=== PATIENT | male | born 1965 | race Caucasian/White ===

== ENCOUNTER 2021-11-18 05:02 | Emergency (ER) | payer BC ==
[2021-11-18] MEDS ORDERED: Nitroglycerin 0.4 MG TAB 1 EACH ONE (05:29)
[2021-11-18 05:51] LABS: #Basophils 0.1 thou/uL (0.0-0.2); #Eosinphils 0.2 thou/uL (0.0-0.7); #Lymphocytes 2.9 thou/uL (1.20-3.40); #Monocytes 0.8 thou/uL (0.11-0.59); %Basophils 1.2 % (0.0-1.0); %Eosinophils 3.1 % (0.0-10.0); %Monocytes 10.2 % (0.0-10.0); %Neutrophils 49.5 % (42.0-75.0); Hemoglobin 15.2 g/dL (14.0-18.0); Mean Corpuscular Hemoglobin 29.5 pg (27.0-31.0); Mean Platelet Volume 8.9 fL (7.4-10.4); Platelet Count 337 thou/uL (130-400); RBC Distribution Width 13.2 % (11.5-14.5); Red Blood Cell (RBC) Count 5.16 mill/uL (4.70-6.10)
[2021-11-18 05:53] LABS: INR-International Normal Ratio 0.9; Prothrombin Time 12.5 sec (12.0-14.7)
[2021-11-18 05:54] LABS: PTT 27.6 sec (22.9-36.1)
[2021-11-18 06:02] LABS: ALT (SGPT) 24 U/L (8-55); AST (SGOT) 17 U/L (5-34); Alkaline Phosphatase 63 U/L (40-110); Anion Gap 15 mmol/L (10-20); BUN (Urea Nitrogen) 17 mg/dL (8.4-25.7); Bilirubin, Total 0.3 mg/dL (0.2-1.2); CK (CPK) 92 U/L (30-200); Calc. Creatinine Clearance 0 mL/min (70-130); Calcium 9.1 mg/dL (7.8-10.44); Carbon Dioxide 23 mmol/L (22-29); Chloride 108 mmol/L (98-107); Globulin 2.5 g/dL (2.4-3.5); Glucose 89 mg/dL (70-105); Potassium 4.3 mmol/L (3.5-5.1); Protein, Total 6.5 g/dL (6.0-8.3); Sodium 142 mmol/L (136-145)
[2021-11-18] MEDS ORDERED: Lidocaine Viscous Sol 2% 15 ml UD Cup ONE (06:53)
[2021-11-18] MEDS ORDERED: Mag-Al Plus 1200 MG/1200 MG/120 MG/30 ML UDCUP ONE (06:53)
== END 2021-11-18 10:56 | disposition short-term general hospital (02) ==
LOC: MADERS 05:02
DX: I24.9 Acute ischemic heart disease, unspecified (principal); R00.1 Bradycardia, unspecified
CPT/HCPCS: 71045; 82550; 83880; 84484; 85610; 85730; 93005; 94760

== ENCOUNTER 2024-06-04 15:14 | Emergency (ER) | payer BC, OTHER | END 2024-06-04 16:26 | disposition home or self-care (01) | LOC: MADERS 15:14 | DX: S63.501A Unspecified sprain of right wrist, initial encounter (principal); X50.0XXA Overexertion from strenuous movement or load, initial encounter | CPT/HCPCS: 99283 ==